=== PATIENT | female | born 1945 | race Caucasian/White ===

== ENCOUNTER 2024-09-03 18:08 | Emergency (ER) | payer OTHER, SELFPAY ==
[2024-09-03 18:08] VITALS: BMI 36.6
[2024-09-03 18:14] VITALS: BP 172/94
[2024-09-03 18:16] VITALS: BP 172/94
[2024-09-03 18:46] LABS: Urine Albumin Negative (Neg - Trace); Urine Bilirubin Negative (Negative); Urine Character Clear (Clear); Urine Color Yellow; Urine Glucose Negative (Negative); Urine Ketone Negative (Negative); Urine Leukocyte Negative (Negative); Urine Nitrite Negative (Negative); Urine Occult Blood Negative (Negative); Urine Specific Gravity 1.005 (<1.030); Urine Urobilinogen Negative (Neg - 1+)
[2024-09-03 18:47] LABS: % Basophils 0.2 % (0-2); % Eosinophils 1.9 % (0-6); % Immature Granulocytes 0.8 % (0-0.5); % Lymphocytes 10.2 % (20.5-51.1); % Monocytes 11.7 % (1.7-9.3); % Neutrophils 75.2 % (42.2-75.2); Absolute Eosinophils 0.2 10^3/uL (0-0.7); Absolute Immature Granulocytes 0.1 10^3/uL (0-0.05); Absolute Lymphocytes 1.3 10^3/uL (1.2-3.4); Absolute Monocytes 1.4 10^3/uL (0.1-0.6); Absolute Neutrophils 9.2 10^3/uL (1.4-6.5); Hemoglobin 11.3 g/dL (12.0-16.0); Mean Corp Hgb Conc. 31.4 g/dL (33.0-37.0); Mean Corpuscular Hgb 30.7 pg (27.0-31.0); Mean Corpuscular Volume 97.8 fL (81.0-99.0); Mean Platelet Volume 9.8 fL (7.4-10.4); Nucleated Red Blood Cells % 0 %; Platelet Count 204 10^3/uL (130-400); Red Blood Cell Count 3.68 10^6/uL (4.20-5.40); Red Cell Dist. Width 17.1 % (11.5-14.5); White Blood Cell Count 12.3 10^3/uL (4.8-10.8)
[2024-09-03 19:03] LABS: Blood Urea Nitrogen 36 mg/dl (7-17); Calcium 9.4 mg/dl (8.4-10.2); Carbon Dioxide 30 mmol/L (22-30); Chloride 99 mmol/L (98-107); Glucose 90 mg/dl (70-99); Sodium 136 mmol/L (135-145); eGFR 45.48
--- NOTE | 2024-09-03 19:57 | ED.GENMED ---
History of Present Illness
General
Chief Complaint: Change in Mental Status
Source: patient and family
Exam Limitations: dementia
Time Seen by Provider: 09/03/24 19:37
History of Present Illness
History of Present Illness:
See MDM
Past History
Past History
ED Past Medical History: CHF and Other (Dementia)
ED Past Surgical History: None
Social History
Tobacco: Non-smoker
Alcohol: None
Phy Exam
Physical Exam
Physical Exam:
See MDM
Course
Orders/Labs/Results
Orders:
Orders
09/03/24 18:36
Basic Metabolic Panel Urgent
Comment: BMP NO K
Complete Blood Count/With Diff Urgent
Urinalysis Reflex To Culture Urgent
Date Specimen was Collected: 09/03/24
Time Specimen was Collected: 18:34
09/03/24 19:53
CT Head W/o Iv Contrast Urgent
Comment:
Reason For Exam: recent stroke, increased mental status
CR Chest Portable - 1 View Urgent
Comment:
Reason For Exam: altered, weight gain
Reason Study Needs to be Portable: Patient Unstable
09/03/24 21:11
NT-proBNP Urgent
Potassium Urgent
09/03/24 23:17
Furosemide [Lasix] 40 mg IV NOW STA
Lorazepam [Ativan] 0.5 mg IV NOW STA
Abnormal Lab Results
09/03/24
18:36
WBC 12.3 H 10^3/uL
(4.8-10.8)
RBC 3.68 L 10^6/uL
(4.20-5.40)
Hgb 11.3 L g/dL
(12.0-16.0)
Hct 36.0 L %
(37.0-47.0)
MCHC 31.4 L g/dL
(33.0-37.0)
RDW 17.1 H %
(11.5-14.5)
Abs Immat Gran (auto) 0.1 H 10^3/uL
(0-0.05)
Absolute Neuts (auto) 9.2 H 10^3/uL
(1.4-6.5)
Absolute Monos (auto) 1.4 H 10^3/uL
(0.1-0.6)
Immature Gran % 0.8 H %
(0-0.5)
Lymphocytes % 10.2 L %
(20.5-51.1)
Monocytes % 11.7 H %
(1.7-9.3)
BUN 36 H mg/dl
(7-17)
Creatinine 1.2 H mg/dL
(0.6-1.0)
09/03/24 18:36
09/03/24 21:11
Vital Signs
Initial and Last Documented VS:
Initial Vital Signs
Pulse Ox
82
09/03/24 18:12
Last Documented Vital Signs
Temp Pulse Resp BP Pulse Ox
97.6 F 71 18 148/97 98
09/03/24 18:14 09/03/24 22:15 09/03/24 22:15 09/03/24 22:01 09/03/24 22:15
MDM/Problems Addressed
Differential Diagnosis Includes:
HPI and MDM Narrative:
79-year-old female presenting with altered mental status. Patient was recently evaluated at an outside hospital after a fall. She was found to have left facial fractures and a stroke at that time. Since then, she was transition to rehab. While
at rehab, patient coming more altered and confused. On my exam, she is extremely well-appearing nontoxic. She is lying in bed comfortably and offering no complaint. Given her history of dementia, I question whether or not she has a history of
sundowning. Daughter at bedside does acknowledge that she does have a history of sundowning. They are both concerned because she has had increased weight gain. This has happened before due to CHF. Prior records at bedside indicate that she is on
20 mg of Lasix a day. She is in no acute respiratory distress but she does have pitting edema in bilateral lower extremities. Blood work was started before my evaluation and there is no significant metabolic abnormality that would suggest altered
mental status. Urinalysis negative. Will obtain a BNP and a chest x-ray. Will obtain CT head given recent stroke and now with increased mental status change.
Physical exam
General: Lying in bed comfortably.
HEENT: protecting airway. Bruising to left face which appears old
Neck: appears supple
CV: No evidence of cyanosis. Regular rate and rhythm
Resp: No accessory muscle use. Lungs clear
Abd: Non-distended
Extremities: +3 pitting edema bilateral lower extremities
Neuro: alert. Pleasantly demented
Psych: Flat affect
Skin: Intact
Problems Addressed including Acute and Chronic Conditions affecting care:
1. Altered mental status
Acuity: acute
Prognosis: stable
Details: Likely in the setting of her ongoing dementia and recent ICU stay and now and rehab. Will obtain CT head
2. Weight gain
Acuity: acute
Prognosis: stable
Details: Will obtain BNP and chest x-ray
Updates
Chest x-ray clear. Patient esteban well-appearing nontoxic. Will increase Lasix and discharge
Differential Diagnosis (but not limited to): Hemorrhagic stroke, hyponatremia, UTI, CHF exacerbation
Testing considered:
Drug therapy (if applicable): OTC meds, please see d/c instruction regarding Rx drugs
Amount and/or Complexity of Data Reviewed
Clinical info obtained from: Patient. and daughter indicate recent weight gain and history of dementia
External data reviewed: N/A
Labs I independently reviewed (but not limited to): LFTs
Radiology: X-ray independently reviewed: Chest x-ray clear
Pulse Ox: not hypoxic
EKG independently reviewed: N/A
Venue Manager: N/A
Critical Care: N/A
Risk of Complication:
Social Determinants of health: Good social support
Discussed with other providers: N/A
Escalation of Care includes Admit/Obs: After being observed in the Emergency Department, pt stable for discharge.
Occasional wrong word or 'sound a like' substitutions may have occurred due to the inherent limitations of voice recognition software. Read the chart carefully and recognize, using context, where substitutions have occurred.
*Critical Care Note
Total Time (30-74mins, 75-104mins- exclusive of procedures): Not Applicable
ED Attending Note
-
Portions of this chart may have been created with voice recognition software.� Occasional wrong word or��sound alike� substitutions may have occurred due to the inherent limitations of voice recognition software.
Discharge Plan
Departure
Patient Disposition: Home (Routine Discharge)
Date of Disposition: 09/03/24
Time of Disposition: 23:20
Patient with high blood pressure during this ER visit?: Yes
Discharge Problem:
Acute exacerbation of CHF (congestive heart failure)
Instructions: BLOOD PRESSURE
Prescriptions:
New
furosemide [Lasix] 40 mg tablet
40 mg PO DAILY Qty: 7 0RF
No Action
furosemide 40 MG tablet
40 mg PO DAILY
levothyroxine 137 MCG tablet
137 mcg PO DAILY
oxybutynin chloride 10 MG tablet extended release 24hr
10 mg PO DAILY
metformin 1,000 MG tablet
1,000 mg PO BID
aspirin 81 MG tablet
81 mg PO DAILY
cholecalciferol (vitamin D3) 1,000 UNIT capsule
1,000 unit PO DAILY
ezetimibe-simvastatin 1 TABLET tablet
1 tab PO DAILY
qy-vsi-OP-lutein-alpha lip acd [Diabetes Health] 1 EACH combo pack
1 comb.pkg PO DAILY
amlodipine-benazepril [Lotrel] 1 CAP capsule
1 cap PO DAILY
Referrals:
Craig Harmon I., DO [Family Provider] -
Activity Restrictions/Additional Instructions:
Currently, your paperwork indicates that you are on 20 mg of Lasix daily. I would like you to increase this to 40 mg of Lasix daily and speak to the fish net maker about continuing this dose or potentially going back down to 20 mg a day.
Please return for any worsening symptoms.
You may return at any time if you have further concerns.
Please follow up with your doctor at the first available appointment, preferably this week.
Thank you for choosing [facility].
Interventions
Interventions:
*Risk Screen - Suicide Last Done: 09/03/24 18:44
*General Assessment Last Done: 09/03/24 18:44
*Neglect/Abuse Screening Last Done: 09/03/24 18:44
ED- Fall Risk Assessment Last Done: 09/03/24 21:16
*ED COVID-19 Vaccine History Last Done: 09/03/24 18:44
ED- Pulmonary Assessment Last Done: 09/03/24 21:16
ED- Neurological Assessment Last Done: 09/03/24 21:16
ED Swallowing Screen Last Done: 09/03/24 21:16
Discharge Date and Time
Print Language: BAHRAINI
[2024-09-03 21:43] LABS: NT-proBNP 4150 pg/ml
[2024-09-03 22:01] VITALS: BP 148/97
[2024-09-03 23:00] VITALS: BP 175/86
[2024-09-03] MEDS: ATIVAN 0.5 MG IV (23:31)
[2024-09-03] MEDS: LASIX 40 MG IV (23:36)
[2024-09-03 23:41] VITALS: BP 170/134
== END 2024-09-04 00:35 | disposition home or self-care (01) ==
LOC: EMR 18:08
PROVIDERS: Emergency Medicine; EMERGENCY PHYSICIAN Student in an Organized Health Care Education/Training Program; FAMILY PHYSICIAN Internal Medicine
DX: I50.9 Heart failure, unspecified (principal); F03.90 Unspecified dementia, unspecified severity, without behavioral disturbance, psychotic disturbance, mood disturbance, and anxiety; R03.0 Elevated blood-pressure reading, without diagnosis of hypertension
CPT/HCPCS: 99285; 96374; 96375; 70450; 71045; 80048; 81003; 83880; 84132; 85025

== ENCOUNTER 2024-09-04 00:58 | Emergency (ER) | payer OTHER, SELFPAY ==
[2024-09-04] VITALS (8 sets, daily range): BP systolic 127–180; BP diastolic 75–101
--- NOTE | 2024-09-04 01:08 | ED.GENMED ---
History of Present Illness
<Chris Cardona, DO - Last Filed: 09/04/24 01:56>
General
Chief Complaint: Social Service Referral
Source: patient
Exam Limitations: none
Time Seen by Provider: 09/04/24 01:07
History of Present Illness
History of Present Illness:
See MDM
Past History
<Chris Cardona, DO - Last Filed: 09/04/24 01:56>
Past History
ED Past Medical History: CHF and Other (Dementia)
ED Past Surgical History: None
Social History
Tobacco: Non-smoker
Alcohol: None
Phy Exam
<Chris Cardona, DO - Last Filed: 09/04/24 01:56>
Physical Exam
Physical Exam:
See MDM
Course
<Chris Cardona, DO - Last Filed: 09/04/24 01:56>
Orders/Labs/Results
Orders:
Orders
09/04/24 01:07
Case Management Consult ONCE
Case Management Consult: Discharge Planning
Crisis Consult Urgent
Reason for Consult: Agitation
09/04/24 02:58
Consult Notification Routine
Specialty to Notify: Psychiatry
Consult Psychiatry [PSYCHIATRY CONSULT] Routine
Consulting Provider: Aleisha Medina
Was physician already notified: No
Reason for consult: Agitation
Vital Signs
Initial and Last Documented VS:
Initial Vital Signs
Temp Pulse Resp BP Pulse Ox
98 F 76 22 171/83 94
09/04/24 01:03 09/04/24 01:03 09/04/24 01:03 09/04/24 01:03 09/04/24 01:03
Last Documented Vital Signs
Temp Pulse Resp BP Pulse Ox
97.6 F 82 20 171/99 99
09/04/24 07:24 09/04/24 07:24 09/04/24 07:24 09/04/24 07:24 09/04/24 07:24
<Jasper Pisano MD - Last Filed: 09/04/24 12:32>
Orders/Labs/Results
Orders:
Orders
09/04/24 01:07
Case Management Consult ONCE
Case Management Consult: Discharge Planning
Crisis Consult Urgent
Reason for Consult: Agitation
09/04/24 02:58
Consult Notification Routine
Specialty to Notify: Psychiatry
Consult Psychiatry [PSYCHIATRY CONSULT] Routine
Consulting Provider: Aleisha Medina
Was physician already notified: No
Reason for consult: Agitation
Vital Signs
Initial and Last Documented VS:
Initial Vital Signs
Temp Pulse Resp BP Pulse Ox
98 F 76 22 171/83 94
09/04/24 01:03 09/04/24 01:03 09/04/24 01:03 09/04/24 01:03 09/04/24 01:03
Last Documented Vital Signs
Temp Pulse Resp BP Pulse Ox
97.6 F 82 20 171/99 99
09/04/24 07:24 09/04/24 07:24 09/04/24 07:24 09/04/24 07:24 09/04/24 07:24
<Chris Cardona DO - Last Filed: 09/04/24 01:56>
MDM/Problems Addressed
Differential Diagnosis Includes:
HPI and MDM Narrative:
79-year-old female presenting back to the emergency department for evaluation of agitation. She was seen earlier today and it was suggested that she increase her Lasix for mild CHF exacerbation. She does have longstanding history of dementia and
has been apparently sundowning at her facility.
On my initial evaluation, patient was well-appearing and nontoxic and appeared mildly demented. She was discharged back to her facility to increase her Lasix. The ambulance crew called at the facility and indicated that the workers from the
facility ran out to meet the ambulance and refused to take her back. The ambulance had no choice but to bring her back to the emergency department.
Will have crisis evaluate
Physical exam
General: Well appearing and non-toxic
HEENT: protecting airway
Neck: appears supple
CV: No evidence of cyanosis
Resp: No accessory muscle use
Abd: Non-distended
Extremities: +3 bilateral pitting leg edema
Neuro: alert
Psych: Pleasantly demented
Skin: Intact
Problems Addressed including Acute and Chronic Conditions affecting care:
1. Demented with intermittent agitation
Acuity: acute
Prognosis: stable
Details: Likely sundowning. Her facility is refusing to take her back. Will have crisis and case management eval
Differential Diagnosis (but not limited to): Sundowning, dementia, agitation
Testing considered: CT head
Drug therapy (if applicable): OTC meds, please see d/c instruction regarding Rx drugs
Amount and/or Complexity of Data Reviewed
Clinical info obtained from: Patient
External data reviewed: N/A
Labs I independently reviewed (but not limited to): N/A
Radiology: N/A
Pulse Ox: not hypoxic
EKG independently reviewed: N/A
Car Coupler: N/A
Critical Care: N/A
Risk of Complication:
Social Determinants of health: Good social support
Discussed with other providers: N/A
Escalation of Care includes Admit/Obs: Crisis and case management will work on disposition
Occasional wrong word or 'sound a like' substitutions may have occurred due to the inherent limitations of voice recognition software. Read the chart carefully and recognize, using context, where substitutions have occurred.
<Chris Cardona, DO - Last Filed: 09/04/24 01:56>
*Critical Care Note
Total Time (30-74mins, 75-104mins- exclusive of procedures): Not Applicable
<Jasper Pisano MD - Last Filed: 09/04/24 12:32>
Update Note
Update Note:
1230..... Patient seen by case management. Per case management family would prefer to have her at home. Discharged to follow-up
ED Attending Note
<Chris Cardona DO - Last Filed: 09/04/24 01:56>
-
Portions of this chart may have been created with voice recognition software.� Occasional wrong word or��sound alike� substitutions may have occurred due to the inherent limitations of voice recognition software.
Discharge Plan
Departure
Patient Disposition: Home (Routine Discharge)
Date of Disposition: 09/04/24
Time of Disposition: 01:56
Patient with high blood pressure during this ER visit?: Yes
Discharge Problem:
ing
Instructions: BLOOD PRESSURE
Prescriptions:
No Action
furosemide 40 MG tablet
40 mg PO DAILY
levothyroxine 137 MCG tablet
137 mcg PO DAILY
metformin 1,000 MG tablet
1,000 mg PO BID
aspirin 81 MG tablet
81 mg PO DAILY
cholecalciferol (vitamin D3) 1,000 UNIT capsule
1,000 unit PO DAILY
Diabetes Health 1 EACH combo pack
1 comb.pkg PO DAILY
atorvastatin 40 mg Tablet
40 mg PO HS
potassium chloride 10 mEq Capsule, Extended Release
10 meq PO DAILY
metoprolol succinate 50 mg Tablet Extended Release 24 Hr
50 mg PO DAILY
donepezil 10 mg Tablet
10 mg PO HS
famotidine 40 mg Tablet
40 mg PO DAILY
amlodipine 5 mg Tablet
5 mg PO DAILY
trazodone 100 mg Tablet
100 mg PO HS
magnesium 200 mg Tablet
400 mg PO BID
duloxetine 30 mg Capsule, Delayed Rel Sprinkle
30 mg PO BID
furosemide [Lasix] 40 mg tablet
20 mg PO DAILY
Referrals:
Craig Harmon I., DO [Family Provider] - Follow up in 2-3 days
Activity Restrictions/Additional Instructions:
Follow-up closely with your primary physician
Continue your current medications
Return with any concerns including worsening mental status shortness of breath fever chest pain etc.
Interventions
Interventions:
*Risk Screen - Suicide Last Done: 09/04/24 01:03
*General Assessment Last Done: 09/04/24 01:03
*Neglect/Abuse Screening Last Done: 09/04/24 01:00
ED- Fall Risk Assessment Last Done: 09/04/24 01:00
*ED COVID-19 Vaccine History Last Done: 09/04/24 01:03
ED-Psychological Assessment Last Done: 09/04/24 07:24
Discharge Date and Time
Print Language: URUGUAYAN
--- NOTE | 2024-09-04 08:12 | EDRN ---
this RN notified Dr. Pisano of the pts elevated blood pressure, no new orders received at this time, no s/s of distress, waiting for consulted departments to see the pt, the pt is resting in stretcher in the lowest position, side rails up x2, call
aguayo within reach, HOB elevated, the pt is currently sleeping, bruising on the pts face noted, medications unverified, this RN will look for medication list, will continue to monitor the pt closely
--- NOTE | 2024-09-04 10:27 | EDRN ---
the pts son is currently at the pts bedside and asked this RN for an update, this RN notified the pts son that this RN is waiting for case management, psychiatry, and crisis to see the pt, the pts son stated to this RN that he is upset that [facility] would not accept the pt back, this RN apologized to the pts son for the situation
--- NOTE | 2024-09-04 10:45 | EDRN ---
this RN notified Dr. Pisano that the pt has not received her morning medications, no new orders received, the pt was offered breakfast and the pt will not eat currently, the pts son is currently at the pts bedside
--- NOTE | 2024-09-04 10:53 | EDRN ---
this RN and Ekaterina RN entered the pts room and the pts brief was wet, the pt was cleaned up and a new brief was placed on the pt and a pure wick was put into place, the pt was repositioned per the pts request, the pts son is currently still at the
pts bedside, will continue to monitor the pt closely
--- NOTE | 2024-09-04 11:47 | CM ---
Spoke to Liaison from [facility], patient was running down hallways naked, throwing objects at staff and was very agitated. They can not accept her back until her behaviors are controlled. They feel that she needs a geripsych placement prior to going
back to their facility. She also stated to speak to her in regards to his wishes as initally he wanted to take her home from [facility] , but decided to send her to short term rehab prior to taking her home. Update to CM.
--- NOTE | 2024-09-04 12:41 | CM ---
Met with patient, her son, and her at the bedside
Pharmacy verified: [id number] [facility], [place]
Family Physician: Brynn Martinez D.O., [facility], [address] [place] [id number]
Address verified: [address] [place] [id number]
, Jasper Espino, reported that he and patient live in multilevel home; 1 step to enter; stair glide to 2nd floor; 1st floor set up with Bed and powder room; 2nd floor bath has walk-in shower with grab bar and seat
PLOF: patient ambulates with Rollator; needs assistance with personal care and ADLs; a commode is available for 1st floor; toileting in the powder room is a challenge
Recent stay @ [facility]; Home Health services with [facility]
and son will be able to transport patient home
prefers to take patient home with resumption of home health. Seeking assistance with private duty caregivers to assist her w/ personal care was discussed
Plan: Discharge to home today; referral for home health sent via [facility] to [facility]
--- NOTE | 2024-09-04 13:41 | EDRN ---
this RN spoke with the case worker Keely who spoke with the pts family and Dr. Conklin and is setting up home care for the pt
--- NOTE | 2024-09-04 14:00 | EDRN ---
the pts stated to case management that he wants the pt to go home with him and wants to set up home care, this RN and Dr. Conklin discussed with the pts if he was comfortable administering her medications to her at home and the pts
stated that, 'I am more than capable of giving her medication to her, she will take them for me, and i know what her medications are and i want to take her home', the plan is to discharge the pt home with home care
--- NOTE | 2024-09-04 14:48 | EDRN ---
psychiatry currently at the pts bedside speaking with the pts and son
--- NOTE | 2024-09-04 14:59 | EDRN ---
psychiatry currently still at the pts bedside
--- NOTE | 2024-09-04 15:54 | ED.ATTNOTE ---
ED Attending Note
ED Attending Note
Patient seen and examined by attending physician: Yes
ED Attending Note:
Patient appears well, stable, and comfortable. At times she does get agitated. Patient assessed multiple times by case management and offered placement to family. would like to take the patient home and feels that she will be calmer at
home. Son did express concerns about her going home, however, patient's adamant that he would like to take her home and feels confident he gets a caregiver
-
Portions of this chart may have been created with voice recognition software.� Occasional wrong word or��sound alike� substitutions may have occurred due to the inherent limitations of voice recognition software.
--- NOTE | 2024-09-04 16:00 | EDRN ---
it was clarified by the pts that he wanted his to come home, case management, crisis, psychiatry and Dr. Conklin spoke to the pts and the pts son about this, it was clarified that the pt was going to be discharged to home with
[facility] health nurse however the pts was unsure of when they were coming, this RN and Ekaterina RN entered the pts room to change the pt into her clothes and to discharge the pt to home, the pt started to scream and cry and stated to
staff that this RN and Ekaterina RN were hurting her, this RN and Ekaterina RN attempted to change the pts brief to go home and the pt screamed and cried throughout the changing process, the pt was able to turn from side to side, the pts went
outside to pull the car up to the front of the ER and to warm the car, while the pts was outside getting the car the pts son stated to this RN that he didn't know how his dad the pts was going to care for the pt at home and stated
that it is unsafe, the pts son is worried about taking the pt home and is worried that she will fall and this is too much for his dad, this RN notified the charge nurse, the correctional case manager Eva and case management Keely, this RN attempted to change the
pt into her clothes but she continued to scream and cry, the pts came back to the pts room and this RN and the pts son spoke with the pts about taking the pt home and assuring that this is what he wanted, the pts got very
upset and stated that he wanted her out of here now, 'Just get her dressed and get her in the car i want to take her home and that's what she wants, i cant take better care of her, and my son talked behind my back, this is ridiculous put her in the
car', this RN finished up dressing the pt and sat the pt on the side of the bed and the pt started to cry and said to not touch her, Paula the charge nurse brought a wheel chair for the pt and at this time case management and Dr. Conklin came to
the pts room to speak with the pts and the pts became very upset and stated that he just wanted to take his home and that he wants to leave 'right now', the pts verbally stated that he was comfortable taking his
home, this was heard by this RN, Paula the charge nurse, Keely from case management, and Dr. Conklin, this RN and Paula the charge nurse attempted to assist the pt to a standing position and into the w/c but the pt screamed and the pts
stated that, 'She doesn't want your help just get off of her and let me do it just move', the pt stood with the help of her and was able to stand and pivot but needed assistance to a sitting position into the w/c, this RN brought the pt
outside and to her husbands car, the pts opened the car door and this RN asked the pts if this RN could assist with getting his into the car and if he was comfortable with that and the pts stated, 'Yeah just get her into
the car', this RN and the pts son attempted to assist the pt into a standing position and the pt started screaming and crying, this RN gave the pt a minute to calm down and the pts offered encouragement, this RN and the pts son attempted for
a second time to get the pt into the care and the pt was able to stand and pivot x2 assist and the pt was able to get into the pts car, the pts buckled the pts seatbelt and started screaming at this RN and the pts son stating that this RN
and the pts son 'conspired against me and didn't help me or my ', the pts drove away with the pt safely buckled in the car
--- NOTE | 2024-09-04 16:16 | CON.MD ---
Consultation - Medical
-
79 yr old F presenting to ED following episode of agitation at her rehabilitation facility. She was seen earlier in the day in the ED with a recommendation to increase Lasix for mild CHF exacerbation.
It seems that upon arrival back at the facility, 'the ambulance crew called...and indicated that the workers from the facility ran out to meet the ambulance and refused to take her back. The ambulance had no choice but to bring her back to the
emergency department.' Patient has been sundowning at facility with some agitation reported from the night prior as well. According to family present (son & ) patient only arrived at this facility less than a week ago and was only recently in
the hospital.
Pt sleeping comfortably - attempted to interview on awakening but pt confused and disoriented, was unable to provide meaningful answers at the time. As per both & son, pt has been diagnosed with dementia for some time now and has been
needing assistance increasingly more. She was however doing reasonably well at home with prior to recent hospitalization (for fall) and home is set up with [employer] supports. and son both note that pt needs some sort of supports at home
(visiting nurse, [employer] etc) which they hope to obtain soon.
No prior psychiatric history. No current psychosis noted. Is not this disoriented at baseline, however is still healing from recent fall with significant injury.
Experiences sundowning - will become more irritable, can be agitated at times but is redirectable and calms back down before bedtime. Stable and baseline for pt as per family.
Dementia, unspecified
MSE: confused, calm,speech is minimal & garbled,unable to assess mood, affect is appropriate though anxious, unable to meaningfully assess thought process due to minimal responses but no evidence of si/hi, no avh/delusions observed today.
Disoriented. Memory not formally tested. Insight poor. Judgement poor
There is no indication for psychiatric hospitalization or acute intervention at this time.
Patients expresses wanting to take pt home and to get in-home supports, son expresses concerns about this but also concerns about returning to rehab facility. and son both able to meaningfully express risks & benefits of going home
vs back to a rehab facility - are not yet sure of their decision but they will discuss this further with CM.
== END 2024-09-04 16:31 | disposition home or self-care (01) ==
LOC: EMR 00:58
PROVIDERS: CONSULT PHYSICIAN Psychiatry & Neurology Psychiatry; EMERGENCY PHYSICIAN Student in an Organized Health Care Education/Training Program; FAMILY PHYSICIAN Family Medicine
DX: F03.911 Unspecified dementia, unspecified severity, with agitation (principal); I50.9 Heart failure, unspecified
CPT/HCPCS: 99282